=== PATIENT | female | born 1935 ===

== ENCOUNTER → 2016-07-07 | Outpatient (REF) ==
[~2016-07-07] MED LIST: ASPIRIN 32325 MG/TAB PO; ASPIRIN 81M81 MG/TA2 PO; B-12 250 MCG PO; CALCIUM + D 5001 TAB PO; CALCIUM 600MG+D1 TAB PO; CELEBREX 200MG200 MG PO; ELIQUIS 5MG PO; GLUCOSAMINE & C1 CA1 PO; MAGNESIUM200 MG PO; MULTAQ400 MG PO; MULTIPLE VITAMI1 CAP PO; PLAVIX 75MG TAB75 MG PO; PROBIOTIC ACID1 EAC3 PO; SYNTHROID0.1 MG/TAB PO; TAMBOCOR 1100 MG/TAB PO; TOPROL XL 25MG25 MG PO
== END ==
LOC: ZLAB.WCH 13:22
DX: Z01.89 Encounter for other specified special examinations (principal)

== ENCOUNTER 2016-10-20 13:40 | Inpatient (IN) | payer MEDICARE, BC ==
[2016-10-20] VITALS (212 sets, daily range): BP systolic 96–187; BP diastolic 51–150; PULSE 41–132; TEMP 97.2–98.8; O2SAT 60–100
[~2016-10-20] VITALS: Ht 162.6 cm; Wt 80.0 kg
[~2016-10-20 13:40] MED LIST changes: -B-12 250 MCG PO; -CALCIUM 600MG+D1 TAB PO; -MAGNESIUM200 MG PO; -PROBIOTIC ACID1 EAC3 PO; -TAMBOCOR 1100 MG/TAB PO; -TOPROL XL 25MG25 MG PO
[2016-10-20] MEDS ORDERED: PROBIOTIC ACID1 EAC3 PO (18:43)
[2016-10-20] MEDS ORDERED: MAGNESIUM200 MG PO (18:43)
[2016-10-20] MEDS ORDERED: TAMBOCOR 1100 MG/TAB PO (18:43)
[2016-10-20] MEDS ORDERED: CALCIUM 600MG+D1 TAB PO (18:44)
[2016-10-20] MEDS ORDERED: B-12 250 MCG PO (18:45)
[2016-10-20] MEDS ORDERED: GLUCOSAMINE & C1 CA1 PO (18:46)
[2016-10-21] VITALS (38 sets, daily range): BP systolic 131–153; BP diastolic 51–82; PULSE 59–60; TEMP 97.1–98.1; O2SAT 99–100
[2016-10-21] MEDS ORDERED: ASPIRIN 81M81 MG/TA2 PO (13:17)
[2016-10-21] MEDS ORDERED: TOPROL XL 25MG25 MG PO (13:19)
== END 2016-10-21 15:15 | disposition home or self-care (01) | DRG 227 ==
LOC: EU 13:40 → ICU 14:27 → MEDICAL 10-21 01:48
PROC: 0JH608Z Insertion of Defibrillator Generator into Chest Subcutaneous Tissue and Fascia, Open Approach (ICD-10-PCS; principal; 2016-10-20)
PROC: 02HK3KZ Insertion of Defibrillator Lead into Right Ventricle, Percutaneous Approach (ICD-10-PCS; 2016-10-20)
PROC: 02H63KZ Insertion of Defibrillator Lead into Right Atrium, Percutaneous Approach (ICD-10-PCS; 2016-10-20)
PROC: 5A2204Z Restoration of Cardiac Rhythm, Single (ICD-10-PCS; 2016-10-20)
DX: I48.91 Unspecified atrial fibrillation (principal); I97.120 Postprocedural cardiac arrest following cardiac surgery; I10 Essential (primary) hypertension; I47.2 Ventricular tachycardia
CPT/HCPCS: 99223-AI; 99238; C1721; C1894; C1895; C1898; J0461; J0690; J1265; J2250; J3010; J7030

== ENCOUNTER → 2017-09-10 | Outpatient (REF) ==
[~2017-09-10] MED LIST changes: +B-12 250 MCG PO; +CALCIUM 600MG+D1 TAB PO; +MAGNESIUM200 MG PO; +PROBIOTIC ACID1 EAC3 PO; +TAMBOCOR 1100 MG/TAB PO; +TOPROL XL 25MG25 MG PO
== END ==
LOC: ZLAB.WCH 16:11
DX: Z01.89 Encounter for other specified special examinations (principal)

== ENCOUNTER → 2018-05-27 | Outpatient (REF) | LOC: ZLAB.WCH 18:15 | DX: Z01.89 Encounter for other specified special examinations (principal) ==

== ENCOUNTER 2020-08-17 18:02 | Inpatient (IN) | payer MEDICARE, BC ==
[2020-08-17] VITALS (156 sets, daily range): BP systolic 105; BP diastolic 58; PULSE 92; TEMP 97.9; O2SAT 80–99
[~2020-08-17] VITALS: Ht 162.6 cm; Wt 76.2 kg
--- NOTE | 2020-08-17 19:00 | NUR ---
Received bedside report from EDVIN Dee. Nurse assisted in helping to admit patient to unit. Patient admitted for AFIB RVR with heart rate in 150s. VS during admission assessment were 97.9*F, 92HR, 22RR, 105/58, 96% on RA. No concerns, complaints or pain noted from patient. Patient denied wanting any valuables locked up for safe keeping. Patient has cellphone and wallet in purse in room. VSS. 10mg bolus of cardizem given per OMAR Watts order. Will resume care at this time.
[2020-08-17 19:14] LABS: BASO # 0.1 (0.0-0.2); BASO % 0.7 % (0.0-2.0); EOS # 0.1 (0.0-0.7); EOS % 1.4 % (0-4.0); GRAN # 4.4 (1.4-6.5); HEMATOCRIT 41.3 % (37.0-47.0); HEMOGLOBIN 13.6 g/dl (12.5-16.0); LYMPH # 2.4 (1.2-3.4); LYMPH % 31.1 % (20.0-51.0); MEAN CELL VOLUME 97 fl (80.0-100.0); MEAN CORPUSCULAR HEMOGLOBIN 32 pg (27.0-31.0); MEAN CORPUSCULAR HGB CONC 33 g/dl (33.0-37.0); MEAN PLATELET VOLUME 10.8 fl (7.4-10.4); MONO # 0.7 (0.1-0.6); MONO % 8.5 % (1.7-9.3); PLATELET COUNT 280 K/mm3 (130-400); RED BLOOD COUNT 4.28 M/mm3 (4.10-5.30); REDCELL DISTRIBUTION WIDTH-CV 12.3 % (11.5-14.5)
[2020-08-17 19:26] LABS: ALANINE AMINOTRANSFERASE 14 U/L (4-34); ALKALINE PHOSPHATASE 62 U/L (50-136); ANION GAP 7 mmol/L (7-16); AST,SGOT 27 U/L (15-37); BILIRUBIN,TOTAL 0.6 mg/dL (0.0-1.0); BLOOD UREA NITROGEN 26 mg/dL (7-17); CALCIUM 9.5 mg/dL (8.4-10.2); CARBON DIOXIDE 27 mmol/L (22-30); CHLORIDE 105 mmol/L (98-107); CREATININE, serum 1.02 (0.52-1.25); GLUCOSE 111 mg/dL (74-106); MAGNESIUM 2.1 mg/dL (1.6-2.3); SODIUM 140 mmol/L (137-145); TOTAL PROTEIN 7.3 gm/dL (6.4-8.2)
[2020-08-17 19:41] LABS: TROPONIN-I < 0.012 ng/mL (0.000-0.035)
[2020-08-18] VITALS (361 sets, daily range): BP systolic 102–119; BP diastolic 53–90; PULSE 75–112; TEMP 97.5–97.9; O2SAT 75–100
--- NOTE | 2020-08-18 00:01 | NUR ---
Patient received second 10mg bolus of cardizem at 2200. HR in 140s prior to adminsitration. HR in low 110s after administration. OMAR Watts notified. No concerns or complaints from patient at this time.
--- NOTE | 2020-08-18 02:51 | NUR ---
Cardizem gtt initiated per OMAR Watts orders. Gtt started at 5mg/hr or 5mls/hr. HR prior to administrtion of cardizem gtt ranging between 110s and 140s. BPs ranging 100-120s systolic and 70-80s diastolic. Patient reports no concerns or complaints at this time. No complaints of chest pain or palpitations.
[2020-08-18 05:13] LABS: HEMOGLOBIN 12.9 g/dl (12.5-16.0); MEAN CELL VOLUME 96 fl (80.0-100.0); MEAN CORPUSCULAR HEMOGLOBIN 32 pg (27.0-31.0); MEAN CORPUSCULAR HGB CONC 33 g/dl (33.0-37.0); MEAN PLATELET VOLUME 10.6 fl (7.4-10.4); PLATELET COUNT 235 K/mm3 (130-400); RED BLOOD COUNT 4.05 M/mm3 (4.10-5.30); REDCELL DISTRIBUTION WIDTH-CV 12.3 % (11.5-14.5)
[2020-08-18 05:24] LABS: CALCIUM 9.2 mg/dL (8.4-10.2); CREATININE, serum 0.84 (0.52-1.25); POTASSIUM 4.2 mmol/L (3.4-5.0)
--- NOTE | 2020-08-18 07:00 | NUR ---
Report received on this patient. She is currently lying in bed with no complaints. afib on monitor, cardizem gtt infusing.
--- NOTE | 2020-08-18 12:00 | NUR ---
Patient continues to be on cardizem gtt, rate controlled. Araceli Irby APRN here to see patient. orders received.
--- NOTE | 2020-08-18 12:17 | NUR ---
First visit from the car icer. No needs right now.
--- NOTE | 2020-08-18 12:32 | NUR ---
tea plantation worker met with patient to complete initial intake assessment. Patient is up and sitting in chair during interview. Patient states she resides, alone, in her home at [facility]. Patient has several children living in many different states with the closest one in [place]. Patient states she is independent with her activities of daily living and has cupola liner helper for yard work. Patient's primare care provider is Lia Cortez in [place]. Patient has prescription insurance coverage. Worker provided patient with advance forms and education. Patient states she plans to make the forms and will discuss further with her family. Patient plans to return home upon discharge. Case management will follow patient and provided assistance as needed to secure a safe discharge plan.
[2020-08-18 15:05] LABS: INR 1.6 (0.8-3.0); PROTHROMBIN TIME 17.6 SECONDS (9.7-12.8)
--- NOTE | 2020-08-18 19:00 | NUR ---
Report given to EDVIN Milton.
--- NOTE | 2020-08-18 19:50 | NUR ---
Patient assessment charted and complete. Patient up to restroom and returned to chair. Denies needs at this time. Call light in reach.
[2020-08-19] VITALS (61 sets, daily range): BP systolic 91–128; BP diastolic 54–90; PULSE 59–137; TEMP 97.4–98.7; O2SAT 66–100
--- NOTE | 2020-08-19 06:45 | NUR ---
Patient had uneventful night. Resting in bed this AM.
[2020-08-19 06:54] LABS: CALCIUM 9.5 mg/dL (8.4-10.2); CREATININE, serum 0.88 (0.52-1.25); POTASSIUM 4.5 mmol/L (3.4-5.0)
[2020-08-19 06:57] LABS: BASO # 0.1 (0.0-0.2); BASO % 0.5 % (0.0-2.0); EOS # 0.2 (0.0-0.7); EOS % 1.4 % (0-4.0); GRAN # 9.5 (1.4-6.5); GRAN % 76.9 % (42.2-75.2); HEMATOCRIT 42.9 % (37.0-47.0); HEMOGLOBIN 14.2 g/dl (12.5-16.0); LYMPH # 1.6 (1.2-3.4); MEAN CELL VOLUME 97 fl (80.0-100.0); MEAN CORPUSCULAR HEMOGLOBIN 32 pg (27.0-31.0); MEAN CORPUSCULAR HGB CONC 33 g/dl (33.0-37.0); MEAN PLATELET VOLUME 11.3 fl (7.4-10.4); MONO % 7.9 % (1.7-9.3); PLATELET COUNT 253 K/mm3 (130-400); RED BLOOD COUNT 4.44 M/mm3 (4.10-5.30); REDCELL DISTRIBUTION WIDTH-CV 12.3 % (11.5-14.5)
--- NOTE | 2020-08-19 07:25 | NUR ---
RECEIVED REPORT FROM EDVIN MARTINEZ. PATIENT RESTING IN BED AT THIS TIME WITH EYES OPEN. IV PLACEMENT CONFIRMED. VSS. CALL LIGHT WITHIN REACH.
--- NOTE | 2020-08-19 07:39 | NUR ---
Report given to EDVIN Govea
--- NOTE | 2020-08-19 08:08 | NUR ---
CALLED VASCULAR TO NOTIFY OF EV/CARDIOVERSION TODAY.
--- NOTE | 2020-08-19 08:26 | NUR ---
SPOKE TO MANOJ REGARDING PATIENT'S KNEE PAIN. ORDERS RECEIVED.
--- NOTE | 2020-08-19 10:50 | NUR ---
PATIENT REQUESTED FOR ME TO SPEAK TO GRANDDAUGHTER, NASRIN REGARDING CURRENT PATIENT STATUS. SPOKE TO GRANDDAUGHTER AND SAID I WOULD FURTHER UPDATE POST EV/CARDIOVERSION.
--- NOTE | 2020-08-19 11:17 | NUR ---
Note Specialist attended clinical rounds with the team. PT/OT are recommending home for the patient.
--- NOTE | 2020-08-19 11:20 | NUR ---
POTS AT BEDSIDE. SPOKE TO REGARDING PATIENT MEDICATION REGIMEN. WILL RELAY TO RANP.
--- NOTE | 2020-08-19 13:03 | NUR ---
PATIENT FULLY AWAKE AT THIS TIME. ABLE TO ANSWER ALL ORIENTATION QUESTIONS. PATIENT STATES SHE FEELS SO MUCH BETTER. UPDATED PATIENT ON PLAN OF CARE. VERBALIZED UNDERSTANDING.
--- NOTE | 2020-08-19 13:20 | NUR ---
SPOKE TO DR. AGUILAR REGARDING ANTIDYSRHYTHMIC MEDICATIONS POST EV/CARDIOVERSION. ORDERS RECEIVED.
--- NOTE | 2020-08-19 13:39 | NUR ---
SPOKE TO NASRIN (GRANDDAUGHTER) REGARDING CARDIOVERSION.
--- NOTE | 2020-08-19 20:00 | NUR ---
Assessment complete and charted. Patient up to restroom and assisted into bed. Denies pain. Denies needs at this time. Call light in reach.
[2020-08-20 00:01] VITALS: BP 120/57; PULSE 59; TEMP 98.9
--- NOTE | 2020-08-20 00:30 | NUR ---
Resting in bed. Denies needs. Call light in reach.
[2020-08-20 04:18] VITALS: BP 120/58; PULSE 61; TEMP 97.9
--- NOTE | 2020-08-20 06:33 | NUR ---
Patient had uneventful night. Resting in bed this AM. Call light in reach.
--- NOTE | 2020-08-20 07:26 | NUR ---
Report given to EDVIN Govea
[2020-08-20 08:00] VITALS: BP 115/39; PULSE 60; TEMP 98
--- NOTE | 2020-08-20 09:29 | NUR ---
SPOKE TO BOSTON ARANDA REGARDING PATIENT SOTALOL DOSAGE. ORDERS RECEIVED.
--- NOTE | 2020-08-20 11:15 | NUR ---
DR. PARISI AT PATIENT BEDSIDE. DISCUSSED PLAN OF CARE AND CONFIRMED A TRANSFER TO [facility] TODAY.
--- NOTE | 2020-08-20 11:21 | NUR ---
Manager Garage attended clinical rounds with the team. Pharmacy met with the patient to discuss medications. PT has signed off and the plan is to return home at discharge.
[2020-08-20 12:00] VITALS: BP 103/85; PULSE 61
[2020-08-20 16:00] VITALS: BP 137/66; PULSE 67
--- NOTE | 2020-08-20 16:35 | NUR ---
PATIENT TO BE TRANSFERRED TO [facility]. REPORT GIVEN TO EDVIN KOEHLER. PATIENT BELONGINGS COLLECTED AND SENT WITH PATIENT VIA WHEELCHAIR. VSS.
--- NOTE | 2020-08-20 18:50 | NUR ---
Pt rested well after arrival to the floor. Denied any pain, dizziness, palpitations or SOB. Tele in place. Has no needs at this time. Call light within reach.
--- NOTE | 2020-08-20 20:00 | NUR ---
Assessment complete. Patient is resting in bed and arouses easily to voice. She is alert and oriented with no complaints of pain. No edema is present and patient is breathing well on RA. Qtc is 440 and Sotalol is administered. No new concerns, call light in reach.
[2020-08-20 20:50] VITALS: BP 124/54; PULSE 65; TEMP 97.9
[2020-08-21 00:42] VITALS: BP 126/58; PULSE 62; TEMP 97.8
[2020-08-21 04:37] VITALS: BP 121/62; PULSE 76; TEMP 97.7
[2020-08-21] MEDS ORDERED: BETAPACE 120MG120 MG PO (07:26)
[2020-08-21] MEDS ORDERED: ASPIRIN 81M81 MG/TA2 PO (07:26)
[2020-08-21] MEDS ORDERED: ELIQUIS 5MG PO (07:26)
[2020-08-21 07:58] VITALS: BP 126/49; PULSE 69; TEMP 98.4
--- NOTE | 2020-08-21 08:05 | NUR ---
Pt assessment complete. Pt is laying in bed upon entry, she is A/O x4. Her breathing is even and unlabored on RA. Pt denies SOB. No dizziness at this time. Denies chest pain/palpitations. Pt assisted in getting in the shower. POC discussed with patient who verbalizes understanding. Call light within reach.
--- NOTE | 2020-08-21 11:38 | NUR ---
Patient will discharge home today 08/21. No new needs at this time.
[2020-08-21 11:58] VITALS: BP 129/72; PULSE 70; TEMP 98
[2020-08-21 15:42] VITALS: BP 149/61; PULSE 73; TEMP 98.2
--- NOTE | 2020-08-21 18:16 | NUR ---
Last dose of Sotalol administered. Awaiting EKG at 1999, hoping to leave after this. Had no issues with chest pain, palpitations, SOB or dizziness. Call light within reach.
--- NOTE | 2020-08-21 20:00 | NUR ---
Assessment complete with no new concerns. Patient is educated on discharge plan; EKG is performed at 2000. After clarifying results with Sarah Horan for discharge, patient's IV and tele is removed. This RN provides discharge education and paperwork. All questions answered. Patient is wheeled to ED entrance and assisted into vehicle.
== END 2020-08-21 20:25 | disposition home or self-care (01) | DRG 309 ==
LOC: ICU 18:02 → MEDICAL 08-20 17:12
PROVIDERS: Hospitalist; Nurse Practitioner; Student in an Organized Health Care Education/Training Program; ADMIT Student in an Organized Health Care Education/Training Program
PROC: 5A2204Z Restoration of Cardiac Rhythm, Single (ICD-10-PCS; principal; 2020-08-21)
DX: I48.91 Unspecified atrial fibrillation (principal); I50.30 Unspecified diastolic (congestive) heart failure; E03.9 Hypothyroidism, unspecified; F17.210 Nicotine dependence, cigarettes, uncomplicated; I10 Essential (primary) hypertension; Z85.51 Personal history of malignant neoplasm of bladder; Z79.82 Long term (current) use of aspirin
CPT/HCPCS: 99223-AI; 99232-AI; 99233-AI; 99239; J2704; J7030

== ENCOUNTER 2021-09-14 05:49 | Inpatient (IN) | payer MEDICARE, BC ==
[~2021-09-14] VITALS: Ht 160 cm; Wt 76.6 kg
[2021-09-14] VITALS (11 sets, daily range): BP systolic 94–127; BP diastolic 52–95; PULSE 48–121; TEMP 97.5–98
[~2021-09-14 05:49] MED LIST changes: +BETAPACE 120MG120 MG PO; +SYNTHROID0.075 MG/T PO; -SYNTHROID0.1 MG/TAB PO
[2021-09-14 06:09] LABS: BASO # 0.1 K/mm3 (0.0-0.2); BASO % 0.9 % (0.0-2.0); EOS # 0.2 K/mm3 (0.0-0.7); EOS % 2.4 % (0.0-4.0); GRAN # 4.8 K/mm3 (1.4-6.5); HEMATOCRIT 37.3 % (37.0-47.0); HEMOGLOBIN 12.4 g/dl (12.5-16.0); LYMPH # 1.7 K/mm3 (1.2-3.4); LYMPH % 22.6 % (20.0-51.0); MEAN CELL VOLUME 94 fl (80.0-100.0); MEAN CORPUSCULAR HEMOGLOBIN 31 pg (27-31); MEAN CORPUSCULAR HGB CONC 33 g/dl (33.0-37.0); MEAN PLATELET VOLUME 10.7 fl (7.4-10.4); MONO # 0.7 K/mm3 (0.1-0.6); MONO % 9.8 % (1.7-9.3); PLATELET COUNT 258 K/mm3 (130-400); RED BLOOD COUNT 3.96 M/mm3 (4.10-5.30); REDCELL DISTRIBUTION WIDTH-CV 12.4 % (11.5-14.5)
[2021-09-14 06:21] LABS: ALANINE AMINOTRANSFERASE 7 U/L (0-55); ALBUMIN 3.6 gm/dL (3.4-4.8); ALKALINE PHOSPHATASE 55 U/L (40-150); ANION GAP 9 mmol/L (7-16); AST,SGOT 19 U/L (5-34); BILIRUBIN,TOTAL 0.5 mg/dL (0.2-1.2); BLOOD UREA NITROGEN 24 mg/dL (10-20); CALCIUM 8.9 mg/dL (8.4-10.2); CARBON DIOXIDE 25 mmol/L (23-31); CHLORIDE 107 mmol/L (98-107); CREATININE, serum 0.88 mg/dL (0.57-1.11); GLUCOSE 115 mg/dL (70-99); SODIUM 141 mmol/L (136-145); TOTAL PROTEIN 6.9 gm/dL (6.2-8.1)
[2021-09-14 06:27] LABS: TROPONIN-I < 0.010 ng/mL (0.00-0.033)
[2021-09-14] MEDS ORDERED: COZAAR 25MG25 MG/TAB PO (11:46)
[2021-09-14] MEDS ORDERED: CALCIUM 600600 MG PO (11:47)
[2021-09-14] MEDS ORDERED: VIT PO (13:14)
[2021-09-14] MEDS ORDERED: CHONDR PO (13:14)
[2021-09-14] MEDS ORDERED: GLUCOS PO (13:14)
[2021-09-14] MEDS ORDERED: [UNRECOGNIZED DRUG - OTHER] PO (13:14)
[2021-09-14] MEDS ORDERED: BETAPACE 80MG80 MG PO (13:15)
--- NOTE | 2021-09-14 20:43 | NUR ---
Dr. Victor in to see patient. New orders as follows: 1. Increase Sotalol to 120 mg PO BID. Ok to give additional 40 mg PO tonight since patient already took 80 mg. 2. D/C Cardizem drip. 3. EKG in the morning. Orders updated.
--- NOTE | 2021-09-14 21:54 | NUR ---
Pt alert and oriented upon entry earlier this evening. Resting in bed. Cardizem was running at 5 ml/hr, but has now been stopped per physician order. Sotolol order also changed by physician. Increased sotolol to 120 mg BID. Administered 80 mg per MAR order, then gave an additional 40 mg per physician order. Pt will be NPO 0000. Cardioversion consent signed. Pt denies pain currently. Reported a "band like" pain earlier in the evening but states it has stopped now. Vital signs stable. Last BP 109/52. Pulse is currently in the 90's consistently. Pt remains in a-fib rythym. Shift assessment performed and medications administered with education provided. Bed low and in locked position, with bed alarm on. Pt reported no questions at this time. Will continue to monitor. No new concerns at this time.
[2021-09-15] VITALS (14 sets, daily range): BP systolic 105–131; BP diastolic 46–94; PULSE 53–119; TEMP 97.6–98.2
--- NOTE | 2021-09-15 05:11 | NUR ---
Pt had an uneventful night. Alert and oriented, resting in bed. HR remains in 100's. Rythym is still a-fib. Pt has been NPO since 0000. Consent for procedure signed. Pt has not reported any new pain, or chest tightness. Vital signs stable. Had an unmeasured void overnight. Pt reports no questions at this time. Will continue to monitor. No concerns at this time.
[2021-09-15 06:35] LABS: BASO # 0.1 K/mm3 (0.0-0.2); BASO % 0.7 % (0.0-2.0); EOS # 0.1 K/mm3 (0.0-0.7); EOS % 1.6 % (0.0-4.0); GRAN # 4.2 K/mm3 (1.4-6.5); HEMATOCRIT 39.8 % (37.0-47.0); LYMPH # 1.7 K/mm3 (1.2-3.4); LYMPH % 25.2 % (20.0-51.0); MEAN CELL VOLUME 97 fl (80.0-100.0); MEAN CORPUSCULAR HEMOGLOBIN 32 pg (27-31); MEAN CORPUSCULAR HGB CONC 33 g/dl (33.0-37.0); MONO # 0.7 K/mm3 (0.1-0.6); MONO % 10.2 % (1.7-9.3); PLATELET COUNT 246 K/mm3 (130-400); RED BLOOD COUNT 4.09 M/mm3 (4.10-5.30); REDCELL DISTRIBUTION WIDTH-CV 12.6 % (11.5-14.5)
[2021-09-15 07:01] LABS: ALBUMIN 3.4 gm/dL (3.4-4.8); CREATININE, serum 0.79 mg/dL (0.57-1.11); MAGNESIUM 2.1 mg/dL (1.6-2.6)
[2021-09-15 07:21] LABS: THYROID STIMULATING HORMONE 2.075 uIU/mL (0.350-4.940)
--- NOTE | 2021-09-15 08:53 | NUR ---
Patient is doing well this morning. States she still feels weak but denies any chest pain, SOB, or dizziness. Morning medications administered w/ a sip of water. Patient remains NPO for EV/Cardioversion, consent is signed and on the chart.
--- NOTE | 2021-09-15 09:20 | NUR ---
First visit from the railway traction line worker. No needs right now.
--- NOTE | 2021-09-15 09:24 | NUR ---
Social Work student met with patient to discuss discharge planning. Patient lives in the Independent Living unit of [facility]. The patient sees Dr. Leal out of the [facility] clinic for primary care, and she receives her medications through [facility] [place]. The patient states that she does not use any durable medical equiptment at home, and she states she is independent with her ADL's. The patient states that she has filled out a DPOA-HC prior to her stay at the hospital today. SW followed up with her primary care office at [facility] to find it. SW was in no luck as the only paperwork there is a Declaration. Patient has a son, Juma(ph#[phone]), and a sister, Kentrell, who lives in [place]. Patient states that she is comfortable going back to [place] at [facility] when she is ready to be discharged. *Discharge Plan: [facility] pending PT/OT recs*
--- NOTE | 2021-09-15 18:14 | NUR ---
Patient came back from cardioversion and felt much better. Remains A&Ox4, and a SBA. Denies any pain, SOB, or dizziness. States she is ready to go home tomorrow. VS have been stable.
--- NOTE | 2021-09-15 22:10 | NUR ---
Pt alert and oriented this evening, sitting up in chair. States she is feeling "much better" after her cardioversion today. States her weakness has improved and that she is ready to go home. Pt denies pain. Shift assessment performed. Vital signs are stable. Pt is in NSR, HR is in the 60's. Reports no skin issues after cardoversion. Medications administered and education provided. Pt independent. Calm and cooperative. Adequate appetite. Pt reports no questions at this time. Will continue to monitor. No concerns at this time.
--- NOTE | 2021-09-16 04:38 | NUR ---
Pt had an uneventful night. Calm and resting. Pt continues to remain in NSR, HR in the 60's overnight. BP's remain stable. Pt reports no new pain. EKG ordered for this morning. Pt reports no concerns at this time. Will continue to monitor.
[2021-09-16 04:56] VITALS: BP 112/57; PULSE 69; TEMP 97.6
[2021-09-16 06:13] LABS: BASO % 0.5 % (0.0-2.0); EOS # 0.1 K/mm3 (0.0-0.7); EOS % 1.3 % (0.0-4.0); GRAN # 5.4 K/mm3 (1.4-6.5); GRAN % 69.6 % (42.2-75.2); HEMOGLOBIN 11.6 g/dl (12.5-16.0); LYMPH # 1.4 K/mm3 (1.2-3.4); LYMPH % 17.5 % (20.0-51.0); MEAN CELL VOLUME 95 fl (80.0-100.0); MEAN CORPUSCULAR HEMOGLOBIN 32 pg (27-31); MEAN CORPUSCULAR HGB CONC 33 g/dl (33.0-37.0); MONO # 0.8 K/mm3 (0.1-0.6); MONO % 10.8 % (1.7-9.3); PLATELET COUNT 216 K/mm3 (130-400); RED BLOOD COUNT 3.67 M/mm3 (4.10-5.30); REDCELL DISTRIBUTION WIDTH-CV 12.6 % (11.5-14.5)
[2021-09-16 06:17] LABS: HEMATOCRIT 34.8 % (37.0-47.0)
[2021-09-16 06:34] LABS: ALBUMIN 3.3 gm/dL (3.4-4.8); CALCIUM 8.6 mg/dL (8.4-10.2); CREATININE, serum 0.77 mg/dL (0.57-1.11); PHOSPHOROUS 2.8 mg/dL (2.3-4.7); POTASSIUM 3.8 mmol/L (3.5-4.5)
[2021-09-16 07:30] VITALS: BP 136/51; PULSE 65; TEMP 97.5
[2021-09-16] MEDS ORDERED: BETAPACE 120MG120 MG PO ×2 (09:09)
--- NOTE | 2021-09-16 09:34 | NUR ---
PT/OT are recommending home. The patient may be able to discharge later today, depending on if she is stable on her blood pressure medications. SW met with the patient to review discharge plan. She confirms that she is returning back to her [place] apartment at [facility] and is ready to get back home. She is not interested in home health at this time and she states a friend will be transporting her home. No additional needs at this time. *Discharge plan: home, [facility]*
== END 2021-09-16 13:05 | disposition home or self-care (01) | DRG 309 ==
LOC: COL.ER 05:49 → MEDICAL 06:47
PROVIDERS: Student in an Organized Health Care Education/Training Program; ADMIT Internal Medicine
PROC: 5A2204Z Restoration of Cardiac Rhythm, Single (ICD-10-PCS; principal; 2021-09-15)
PROC: B24BZZ4 Ultrasonography of Heart with Aorta, Transesophageal (ICD-10-PCS; 2021-09-15)
DX: I48.0 Paroxysmal atrial fibrillation (principal); I50.22 Chronic systolic (congestive) heart failure; E03.9 Hypothyroidism, unspecified; I95.9 Hypotension, unspecified; I11.0 Hypertensive heart disease with heart failure; I27.20 Pulmonary hypertension, unspecified; I08.1 Rheumatic disorders of both mitral and tricuspid valves; Z87.891 Personal history of nicotine dependence; Z85.51 Personal history of malignant neoplasm of bladder; Z79.82 Long term (current) use of aspirin; Z79.01 Long term (current) use of anticoagulants; Z95.810 Presence of automatic (implantable) cardiac defibrillator
CPT/HCPCS: 99223-AI; 99233-AI; 99239; J2704; J7030

== ENCOUNTER → 2021-10-31 | Outpatient (CLI) | payer MEDICARE, BC ==
[~2021-10-31] MED LIST changes: +BETAPACE 80MG80 MG PO; +CALCIUM 600600 MG PO; +CHONDR PO; +CORDARONE200 MG/TAB PO; +COZAAR 25MG25 MG/TAB PO; +GLUCOS PO; +PROBIOTIC-MAJOR PO; -SYNTHROID0.075 MG/T PO; +SYNTHROID0.1 MG/TAB PO; +VIT PO; +[UNRECOGNIZED DRUG - OTHER] PO
[2021-10-31 12:04] LABS: BASO % 0.6 % (0.0-2.0); EOS # 0.1 K/mm3 (0.0-0.7); EOS % 1.4 % (0.0-4.0); GRAN # 4.5 K/mm3 (1.4-6.5); GRAN % 67.9 % (42.2-75.2); HEMOGLOBIN 13.4 g/dl (12.5-16.0); LYMPH # 1.4 K/mm3 (1.2-3.4); LYMPH % 21.7 % (20.0-51.0); MEAN CELL VOLUME 98 fl (80.0-100.0); MEAN CORPUSCULAR HEMOGLOBIN 32 pg (27-31); MEAN CORPUSCULAR HGB CONC 33 g/dl (33.0-37.0); MEAN PLATELET VOLUME 10.5 fl (7.4-10.4); MONO # 0.5 K/mm3 (0.1-0.6); MONO % 8.2 % (1.7-9.3); PLATELET COUNT 274 K/mm3 (130-400); RED BLOOD COUNT 4.19 M/mm3 (4.10-5.30); REDCELL DISTRIBUTION WIDTH-CV 12.7 % (11.5-14.5)
[2021-10-31 12:22] LABS: ANION GAP 11 mmol/L (7-16); BLOOD UREA NITROGEN 17 mg/dL (10-20); CALCIUM 9.3 mg/dL (8.4-10.2); CARBON DIOXIDE 27 mmol/L (23-31); CHLORIDE 106 mmol/L (98-107); CREATININE, serum 0.98 mg/dL (0.57-1.11); GLUCOSE 100 mg/dL (70-99); SODIUM 144 mmol/L (136-145)
[2021-10-31 12:30] LABS: TROPONIN-I < 0.010 ng/mL (0.00-0.033)
== END ==
LOC: COL.LAB 11:32
PROVIDERS: Nurse Practitioner
DX: R07.89 Other chest pain (principal); R53.83 Other fatigue

== ENCOUNTER 2021-11-02 18:21 | Inpatient (IN) | payer MEDICARE, BC ==
[~2021-11-02] VITALS: Ht 160 cm; Wt 70.5 kg
[~2021-11-02 18:21] MED LIST changes: -CORDARONE200 MG/TAB PO; -PROBIOTIC-MAJOR PO
[2021-11-03 08:46] VITALS: BP 118/95; PULSE 70; TEMP 97.5
[2021-11-03 09:32] LABS: CALCIUM 9.1 mg/dL (8.4-10.2); CREATININE, serum 0.91 mg/dL (0.57-1.11); MAGNESIUM 2.2 mg/dL (1.6-2.6); POTASSIUM 3.8 mmol/L (3.5-4.5)
[2021-11-03] MEDS ORDERED: CORDARONE200 MG/TAB PO (10:04)
[2021-11-03] MEDS ORDERED: PROBIOTIC-MAJOR PO (10:06)
[2021-11-03 12:14] VITALS: BP 134/76; PULSE 72; TEMP 97.7
[2021-11-03 16:33] VITALS: BP 137/54; PULSE 90; TEMP 97.8
--- NOTE | 2021-11-03 18:00 | NUR ---
Patient tolerated 1st dose of sotalol well. Denies any complaints. IV started in the left forearm, 22G, by Macario - EDVIN.
--- NOTE | 2021-11-03 18:36 | NUR ---
Patient c/o feeling weak, like she could faint. BP was 89/47, retaken, 99/34, then 93/45. Solo notified, instructed to hold losartan and to continue to monitor.
[2021-11-03 20:05] VITALS: BP 107/56; PULSE 62; TEMP 97.6
[2021-11-04] VITALS (7 sets, daily range): BP systolic 81–134; BP diastolic 42–67; PULSE 61–73; TEMP 97.3–98.7
[2021-11-04 07:09] LABS: CALCIUM 9.5 mg/dL (8.4-10.2); CREATININE, serum 0.81 mg/dL (0.57-1.11); POTASSIUM 4.3 mmol/L (3.5-4.5)
--- NOTE | 2021-11-04 09:00 | NUR ---
Patient sitting up in bed, eating breakfast this morning upon entering the room. Patient denies any concerns. Remains A&Ox4, and independent in the room. Call light w/in reach.
--- NOTE | 2021-11-04 09:14 | NUR ---
Initial visit; Patient thanked Certified Personal Finance Counselor for looking in on her and offering God's blessings. Certified Personal Finance Counselor will keep patient in her prayers.
--- NOTE | 2021-11-04 10:30 | NUR ---
Solo notified of low BP. This RN recommended lowering sotalol dose. Orders placed by Solo.
--- NOTE | 2021-11-04 11:36 | NUR ---
GAGE met with the patient to discuss discharge plan. The patient lives alone in [place]. She reports independence with ADLs and does not have any DME. The patient's PCP is Dr. Jose Angel Leal and she receives her medications from [facility]. She reports no difficulties obtaining her meds. The patient does not have a DPOA-HC in EMR, but she states that she does have one completed and that she designated her son (Juma, ph#[phone]) and her granddaughter. Juma lives in [place]. She states that her PCP's office may have a copy of the DPOA-HC. The patient states that she is and has four children: Juma, Valente, Jadiel, and Edie. The patient plans on returning home upon discharge. She states that Juma or a friend will transport her home. No additional needs at this time. GAGE contacted Nel, licensed social worker, at [facility] to inquire if they have a copy of the DPOA-HC. Nel reports that they do not have a DPOA-HC on file, only a Living Will. She states that she will fax the Living Will to the medical unit. *Discharge plan: home*
--- NOTE | 2021-11-04 18:21 | NUR ---
Patient has done well today. Denies any concerns. Continues to be independent.
--- NOTE | 2021-11-04 22:14 | NUR ---
Patient assessed around 2044. Alert and oriented x 4, and able to make needs known. Denies pain and discomfort. INT to left forearm. LS CTA. HRR. Telemetry in place. Voices no questions, needs, or concerns at this time. In bed with call light within reach.
[2021-11-05 00:34] VITALS: BP 131/47; PULSE 59; TEMP 97.8
--- NOTE | 2021-11-05 05:40 | NUR ---
Patient has denied pain and discomfort this shift. Voices no questions, needs, or concerns at this time. In bed with call light within reach.
[2021-11-05 05:50] VITALS: BP 130/65; PULSE 66; TEMP 98.5
--- NOTE | 2021-11-05 07:06 | NUR ---
PATIENT DOING FINE,HAD A CALM NIGHT,VSS, ORIENTX4,STATES THAT SHE IS READY TO BE DISCHARGED, PT EXPLAINED TO THAT SHE STILL HAS 2 DOSES OF SOTALOL, BEFORE BEING DISCHARGED AND DEMONSTATE UNDERSTANDING. ASKED FOR A CUP OF COFFEE
[2021-11-05 07:09] LABS: CALCIUM 9.7 mg/dL (8.4-10.2); CREATININE, serum 0.87 mg/dL (0.57-1.11); POTASSIUM 4.3 mmol/L (3.5-4.5)
[2021-11-05 07:12] VITALS: BP 132/64; PULSE 62; TEMP 98
[2021-11-05 11:45] VITALS: BP 126/59; PULSE 64; TEMP 97.8
== END 2021-11-05 13:05 | disposition home or self-care (01) | DRG 309 ==
LOC: MEDICAL 11-03 08:15
PROVIDERS: ADMIT Internal Medicine Interventional Cardiology
DX: I48.0 Paroxysmal atrial fibrillation (principal); I50.32 Chronic diastolic (congestive) heart failure; I11.0 Hypertensive heart disease with heart failure; E78.5 Hyperlipidemia, unspecified; E03.9 Hypothyroidism, unspecified; I95.9 Hypotension, unspecified; Z95.810 Presence of automatic (implantable) cardiac defibrillator; Z79.01 Long term (current) use of anticoagulants; Z23 Encounter for immunization

== ENCOUNTER 2021-12-15 05:55 | Emergency (ER) | payer MEDICARE, BC ==
[~2021-12-15] VITALS: Ht 160 cm; Wt 75.0 kg
[~2021-12-15 05:55] MED LIST changes: +CORDARONE200 MG/TAB PO; +GLUCOSAMIN 500 PO; +LOPRESSOR 225 MG/TAB PO; +PROBIOTIC-MAJOR PO; +SYNTHROID0.075 MG/T PO
[2021-12-15 05:56] VITALS: TEMP 97.8
[2021-12-15 06:31] LABS: BASO # 0.1 K/mm3 (0.0-0.2); BASO % 0.7 % (0.0-2.0); EOS # 0.1 K/mm3 (0.0-0.7); GRAN # 6.4 K/mm3 (1.4-6.5); GRAN % 71.8 % (42.2-75.2); HEMOGLOBIN 10.2 g/dl (12.5-16.0); LYMPH # 1.4 K/mm3 (1.2-3.4); LYMPH % 15.8 % (20.0-51.0); MEAN CELL VOLUME 98 fl (80.0-100.0); MEAN CORPUSCULAR HEMOGLOBIN 32 pg (27-31); MEAN CORPUSCULAR HGB CONC 33 g/dl (33.0-37.0); MONO # 0.9 K/mm3 (0.1-0.6); MONO % 10.4 % (1.7-9.3); PLATELET COUNT 201 K/mm3 (130-400); REDCELL DISTRIBUTION WIDTH-CV 13.2 % (11.5-14.5)
[2021-12-15 06:33] LABS: HEMATOCRIT 31.4 % (37.0-47.0)
[2021-12-15 06:47] LABS: ALBUMIN 3.5 gm/dL (3.4-4.8); BILIRUBIN,TOTAL 0.7 mg/dL (0.2-1.2); CALCIUM 8.9 mg/dL (8.4-10.2); CREATININE, serum 1.02 mg/dL (0.57-1.11); TOTAL PROTEIN 6.3 gm/dL (6.2-8.1)
[2021-12-15] MEDS ORDERED: MITIGARE0.6 MG (06:47)
[2021-12-15] MEDS ORDERED: PROTONIX 40MG T40 MG PO (06:48)
[2021-12-15] MEDS ORDERED: COZAAR 25MG25 MG/TAB PO (06:48)
[2021-12-15] MEDS ORDERED: CARAFATE 1GM1 G PO (06:49)
[2021-12-15] MEDS ORDERED: BETAPACE 120MG120 MG PO (06:49)
[2021-12-15 07:04] LABS: TROPONIN-I 2.073 ng/mL (0.00-0.033)
[2021-12-15 07:33] VITALS: BP 158/72; PULSE 68
[2021-12-19] MEDS ORDERED: CORDARONE200 MG/TAB PO (10:56)
[2021-12-19] MEDS ORDERED: COZAAR 50MG50 MG/TAB PO (10:56)
== END 2021-12-15 07:50 | disposition home or self-care (01) ==
LOC: COL.ER 05:55
PROVIDERS: Personal Emergency Response Attendant
DX: R55 Syncope and collapse (principal); R77.8 Other specified abnormalities of plasma proteins